=== PATIENT | male | born 1960 | race Caucasian/White ===

== ENCOUNTER 2022-07-13 01:25 | Day surgery (SDC) | payer OTHER, SELFPAY ==
[2022-07-04 16:15] VITALS: BMI 28.0
[2022-07-13 10:10] VITALS: BP 117/83; PULSE 78; RESP 18; TEMP 36.3; O2SAT 100; BMI 27.3
[2022-07-13] MEDS: LACTATED RINGERS 1,000 ML 150 ML IV CONT (10:28)
--- NOTE | 2022-07-13 10:35 | WPDANESEPPF ---
Anes - Initial Pre Proc Eval Procedure: Operation Date: 07/13/22 11:30 Proposed Procedures p Screening Colonoscopy - Han Smith MD Date/Time: 07/13/22 10:35 Surgeon: Han Smith MD Pre Op Diagnosis: neoplasm screening Patient Data Age: 61 Gender: M Height: 1.88 m Weight: 96.5 kg Last Vital Signs Temp 36.3 C L 07/13/22 10:10 Pulse 78 07/13/22 10:10 Resp 18 07/13/22 10:10 BP 117/83 07/13/22 10:10 Pulse Ox 100 07/13/22 10:10 O2 Del Method Room Air 07/13/22 10:10 Allergies Allergy/AdvReac Type Severity Reaction Status Date / Time No Known Allergies Allergy Unverified 07/04/22 16:16 Home Medications Medication Instructions Recorded Confirmed Type No Home Medications 07/04/22 07/04/22 History Patient hx anesthesia problems: none Family hx anesthesia problems: none Results Review: All pre-operative results and documents have been reviewed as part of the pre-operative evaluation. [facility] Past Medical History Medical History Elevated fasting glucose Elevated PSA Encounter for screening for malignant neoplasm of prostate Hernia History of MRSA infection Screening for cholesterol level Screening for colon cancer Screening for deficiency anemia Ventral hernia without obstruction or gangrene Surgical History Surgical History H/O knee surgery Family History Family History Father Family history of malignant neoplasm Sibling Malignant neoplasm of prostate Mother Family history of malignant neoplasm of breast in first degree relative Family history of malignant neoplasm of esophagus Social History Social History Smoking status: Never smoker Tobacco type: cigars Alcohol intake: current Drinks per week: 3 Alcohol use details: BEERS Substance use: never Substance use type: does not use Living arrangements: with family Occupation/Education: occupation Gender identity (if verbalized by the patient): Male Spiritual care concerns: No Anes - Eval Final PreProcedure Day of Procedure 07/13/22 10:35 Patient weight: overweight Heart: regular rate and rhythm Lungs: clear to auscultation and normal air movement Airway: Mallampati scale class II Neurological: alert and oriented Last oral intake: >/= 8 hours ASA classification: II Emergent: no Anesthetic plan: proceed Anesthesia type and monitoring: general GIVS Results Review: All pre-operative results and documents have been reviewed as part of the pre-operative evaluation. Informed Consent: The patient's anesthetic plan and its attendant risks and benefits were discussed with the patient/family/POA. Questions were solicited and answers provided to the satisfaction of the patient/family/POA.
--- NOTE | 2022-07-13 11:00 | PM.HPGS ---
History of Present Illness History of Present Illness Consent: Risks, benefits, and alternatives have been discussed and questions answered. Patient agrees to proceed with procedure. Chief complaint: neoplasm screening Narrative: Luis Enrique Fang is a 61 year old male with colon polyp 7 years ago Review of Systems Constitutional: Constitutional: Denies headache(s) and Denies weakness Eyes: Eyes: Denies blurry vision ENT: Reports Normal hearing present, Denies headache(s) and Denies neck pain Cardiovascular: Cardiovascular: Denies chest pain and Denies dyspnea Respiratory: Respiratory: Denies dyspnea Gastrointestinal: Gastrointestinal: Reports no additional gastrointestinal complaints Genitourinary: Genitourinary: Denies dysuria Musculoskeletal: Musculoskeletal: Denies neck pain Integumentary/Breasts: Skin/Breast: Denies dry skin Neurologic: Reports Normal hearing present, Denies headache(s) and Denies weakness Psychiatric: Psychiatric: Denies anxiety Endocrine: Endocrine: Denies change in body appearance Hematologic/Lymphatic: Hematologic/Lymphatic: Denies easy bleeding Allergic/Immunologic: Allergic/Immunologic: Denies urticaria PMFSH Past Medical History Medical History (Updated 07/13/22 @ 11:01 by Han Smith MD) Colon polyp Elevated fasting glucose Elevated PSA Encounter for screening for malignant neoplasm of prostate Hernia History of MRSA infection Screening for cholesterol level Screening for colon cancer Screening for deficiency anemia Ventral hernia without obstruction or gangrene Surgical History Surgical History H/O knee surgery Family History Family History Father Family history of malignant neoplasm Sibling Malignant neoplasm of prostate Mother Family history of malignant neoplasm of breast in first degree relative Family history of malignant neoplasm of esophagus Social History Social History Smoking status: Never smoker Tobacco type: cigars Alcohol intake: current Drinks per week: 3 Alcohol use details: BEERS Substance use: never Substance use type: does not use Living arrangements: with family Occupation/Education: occupation Gender identity (if verbalized by the patient): Male Spiritual care concerns: No Meds Home Medications and Allergies Home Medications Medication Instructions Recorded Confirmed Type No Home Medications 07/04/22 07/04/22 History Allergies Allergy/AdvReac Type Severity Reaction Status Date / Time No Known Allergies Allergy Unverified 07/04/22 16:16 Vital Signs Vital Signs - 24 hr 07/13/22 10:10 Temperature 97.3 F L Pulse Rate 78 Respiratory Rate 18 Blood Pressure 117/83 Pulse Oximetry 100 Oxygen Delivery Room Air Exam Const: General: comfortable and no acute distress HENMT: Face/Nose/Sinus: Normal nares present Eyes: General: appearance normal, both eyes and all related structures Neck: Neck: no JVD Resp: Auscultation: clear to auscultation bilaterally Cardio: Rate: regular rate Rhythm: regular rhythm GI: Inspection: non-distended GI Palp: Yes Soft to palpation Skin: General skin exam: normal color Neuro: General: gait normal Speech: normal speech Extrem: General: normal to inspection Psych: Mental Status: mental status grossly normal Assessment and Plan Assessment and plan (1) Colon polyp: Code(s): K63.5 - Polyp of colon Status: Acute Assessment and Plan: colonoscopy
[2022-07-13 11:29] VITALS: BP 100/68; PULSE 78; RESP 20; O2SAT 100
[2022-07-13 11:39] VITALS: BP 113/74; PULSE 70; RESP 20; O2SAT 100
[2022-07-13 11:49] VITALS: BP 111/75; PULSE 72; RESP 20; O2SAT 100
== END 2022-07-13 11:55 | disposition home or self-care (01) ==
PROVIDERS: PCP Family Medicine; Visit Provider Internal Medicine Gastroenterology
PROC: 0DJD8ZZ Inspection of Lower Intestinal Tract, Via Natural or Artificial Opening Endoscopic (ICD-10-PCS; CPT 45378; principal; 2022-07-13 11:30)
DX: Z12.11 Encounter for screening for malignant neoplasm of colon (principal); D12.0 Benign neoplasm of cecum; D12.8 Benign neoplasm of rectum; K64.8 Other hemorrhoids; K57.30 Diverticulosis of large intestine without perforation or abscess without bleeding
CPT/HCPCS: 45385; 88305; J2704; J7120